=== PATIENT | female | born 1985 | race Caucasian/White ===

== ENCOUNTER 2017-02-27 11:14 | Outpatient (CLI) | END 2017-02-27 13:33 | disposition home or self-care (01) ==

== ENCOUNTER 2017-03-01 16:59 | Outpatient (CLI) | END 2017-03-01 19:20 | disposition home or self-care (01) ==

== ENCOUNTER 2017-03-17 15:10 | Inpatient (IN) | END 2017-03-20 19:50 | disposition home or self-care (01) | DRG 766 ==